=== PATIENT | male | born 1960 | race Caucasian/White ===

== ENCOUNTER 2020-01-23 10:59 | Day surgery (SDC) | payer MEDICAID ==
[2020-01-20 18:24] LABS: COVID AG,FIA SOURCE NASOPHARYNGEAL
[~2020-01-23] VITALS: Ht 182.9 cm; Wt 79.5 kg
[~2020-01-23 10:59] MED LIST: FOLI-130 PO; MULT-264 PO; SODIUM CHLORIDE 0.9% 1,000 ML ONE; TAMS-13 PO; THIA100T80 PO; TRAZ-257 PO
[2020-01-23] MEDS ORDERED: LIDOCAINE/PF 2% 5 ML VIAL IM ONE (11:00)
[2020-01-23] MEDS ORDERED: PROPOFOL 1% 20 ML VIAL IVP ONE (11:00)
[2020-01-23] MEDS ORDERED: SODIUM CHLORIDE 0.9% 1,000 ML IV ONE (11:00)
== END 2020-01-23 14:30 | disposition home or self-care (01) ==
LOC: SURGERY 10:59
PROVIDERS: ATTEND Internal Medicine Gastroenterology
DX: Z12.11 Encounter for screening for malignant neoplasm of colon (principal); K59.09 Other constipation; Z80.0 Family history of malignant neoplasm of digestive organs; Z20.828 Contact with and (suspected) exposure to other viral communicable diseases; Z98.890 Other specified postprocedural states; G89.29 Other chronic pain
CPT/HCPCS: 45378; 87426; C9803; J2704; J3490; J7030